=== PATIENT | female | born 2000 ===

== ENCOUNTER 2021-03-07 10:47 | Emergency (ER) | payer OTHER, SELFPAY ==
[2021-03-07 11:02] VITALS: BP 122/76; PULSE 94; RESP 18; TEMP 36.4; O2SAT 100
[2021-03-07 11:55] LABS: Basophils Absolute Auto 0.1 K/mm3 (0.0-0.1); Basophils Percent Auto 0.4 % (0.2-1.2); Eosinophils Absolute Auto 0.2 K/mm3 (0-0.3); Eosinophils Percent Auto 1.3 % (0-4.4); Hematocrit 38.3 % (37.0-47.0); Hemoglobin 12.1 g/dL (12.0-15.0); Immature Granulocyte Absolute 0.04 K/mm3 (0.00-0.031); Immature Granulocyte Percent A 0.3 % (0-0.5); Lymphocytes Absolute Auto 1.82 K/mm3 (0.9-3.2); Lymphocytes Percent Auto 15.2 % (18.3-44.2); Mean Corpuscular HGB Conc 31.6 g/dl (32-36); Mean Corpuscular Hemoglobin 26.7 pg (26-34); Mean Corpuscular Volume 84.4 fl (80-100); Mean Platelet Volume 10.1 fl (7.4-10.4); Monocytes Percent Auto 8.3 % (2.6-8.5); Neutrophils Absolute Auto 8.9 K/mm3 (1.3-6.7); Neutrophils Percent Auto 74.5 % (45.5-73.1); Platelet Count Result 287 k/mm3 (150-375); Red Blood Count 4.54 M/mm3 (4.2-5.4)
[2021-03-07 12:23] LABS: Beta HCG Quantitative < 2.39 mIU/ML
--- NOTE | 2021-03-07 12:40 | PC.NURSE ---
PT TOOK OWN IV OUT IN WR BATHROOM, AND STATED SHE IS WANTING TO LEAVE. PT SHOWED THIS RN THE IV / CATH IN THE BATHROOM, NO BLEEDING TO HER ARM. PT ESCORTED OUT WITH [employer] OFFICER, THE SAME OFFICER WHO ARRIVED WITH HER. PT AMBULATORY OUT OF ED WITH [facility] STEADY GAIT. TOLD PT IF FELT SHE NEEDED TO BE SEEN, WE WOULD BE HAPPY TO SEE HER. PT VERBALIZED UNDERSTANDING.
== END 2021-03-08 02:20 | disposition left against medical advice (07) ==
LOC: ANHED 12:51
PROVIDERS: Emergency Provider Emergency Medicine
DX: O20.9 Hemorrhage in early pregnancy, unspecified (principal)
CPT/HCPCS: 36415; 84702; 85025; 85461; 99199